=== PATIENT | male | born 1960 | race Caucasian/White ===

== ENCOUNTER → 2016-12-21 | Day surgery (SDC) | payer BC ==
[~2016-12-21] MED LIST: APA PO; FLOMAX0.4 MG PO; HYDROCODONE PO; LIPITOR20 MG PO; LOMOTIL 0.025 M1 TA1 PO; LOPRESSOR50 MG PO; MEDROL DOSEPAK4 MG PO; PERCOCET 325 MG1 TA2 PO; PRILOSEC40 MG PO; VICO75300 PO; VICODIN ES 7501 TAB PO
--- NOTE | ~2016-12-21 | O ---
[place], [place] OPERATIVE NOTE NAME: SANIYA GARLAND UNIT #: [id number] ROOM: DOCTOR: AAKASH PATEL MD BIRTHDATE: [birth year] DOS: 12/21/2016 HISTORY OF PRESENT ILLNESS: This is a 56-year-old patient who presented with chief concern about colonic screening. ALLERGIES: VIBRAMYCIN, AMOXICILLIN, CELEBREX. FAMILY HISTORY: Mother with colonic carcinoma. PAST SURGICAL HISTORY: Right shoulder repair, skin CA. PAST MEDICAL HISTORY: Hypertension, hypercholesterolemia. PROCEDURE: Today's procedure part of investigation is colonoscopy. PREMEDICATION: Versed and Diprivan. SCOPE: Olympus forward-viewing colonoscope 10L video. REPORT: After putting the patient in the left lateral position and after application of lubricant to the scope, the scope was introduced. Thereafter, under direct visualization, I advanced through the length of colon without difficulty. Base of the cecum explored, appendiceal orifice identified and ileocecal valve was defined. Scope was gradually withdrawn from ascending, transverse and descending colon. Nonspecific left-sided colitis was biopsied. The patient extubated and tolerated the procedure well. IMPRESSION: Nonspecific left-sided colitis. PLAN: High-fiber fruit diet. ACTIVITY: Ad shyanne. FOLLOWUP: As outpatient routinely with you in office, p.r.n. visit with us in [facility]. I thank you very much indeed. [place], [place] OPERATIVE NOTE NAME: SANIYA GARLAND UNIT #: [id number] ROOM: DOCTOR: AAKASH PATEL MD BIRTHDATE: [birth year] AAKASH PATEL MD CM:OPRECORD:OPERATIVE NOTE [id number] AAKASH PATEL MD 12/21/16 1721 interface
[2016-12-21 07:57] VITALS: BP 164/96
[2016-12-21 08:55] VITALS: BP 131/72
[2016-12-21 08:58] VITALS: BP 154/80
[2016-12-21 09:13] VITALS: BP 146/75
== END | disposition home or self-care (01) ==
LOC: SDC 12-16 08:00
DX: Z12.11 Encounter for screening for malignant neoplasm of colon (principal); K51.50 Left sided colitis without complications; I10 Essential (primary) hypertension; E78.00 Pure hypercholesterolemia, unspecified; K44.9 Diaphragmatic hernia without obstruction or gangrene; K21.9 Gastro-esophageal reflux disease without esophagitis; Z87.891 Personal history of nicotine dependence; Z80.0 Family history of malignant neoplasm of digestive organs; Z85.828 Personal history of other malignant neoplasm of skin; Z88.1 Allergy status to other antibiotic agents; Z88.8 Allergy status to other drugs, medicaments and biological substances; Z98.890 Other specified postprocedural states; Z88.0 Allergy status to penicillin

== ENCOUNTER → 2017-08-03 | Outpatient (CLI) | payer BC ==
[2017-08-03 10:24] LABS: HEMATOCRIT 44.3 % (42.0-52.0); HEMOGLOBIN 14.4 g/dl (14.0-18.0); MEAN CORPUSCULAR HGB 29.3 pg (27.0-31.0); MEAN CORPUSCULAR HGB CONC 32.5 g/dl (33.0-37.0); MEAN PLATELET VOLUME 9.3 fl (9.6-12.3); RED BLOOD COUNT 4.92 10*6/uL (4.50-5.90); RED CELL DISTRI WIDTH 13.2 % (0-14.5); WHITE BLOOD COUNT 7.8 10*3/uL (4.8-10.8)
[2017-08-03 10:41] LABS: ALBUMIN 3.5 gm/dl (3.1-4.5); ALKALINE PHOSPHATASE 69 U/L (45-117); BUN 17 mg/dl (7-24); CHLORIDE 105 mmol/L (98-107); CHOLESTEROL 141 mg/dL (<200); CREATININE 1.18 mg/dL (0.70-1.30); HDL CHOLESTEROL 53 mg/dl (40-60); LDL CHOLESTEROL 58 mg/dL (9-159); POTASSIUM 4.2 mmol/L (3.5-5.1); SGOT/AST 12 IU/L (3-35); SGPT/ALT 46 U/L (12-78); SODIUM 141 mmol/L (136-145); TOTAL PROTEIN 7.7 gm/dL (6.4-8.2); TRIGLYCERIDES 150 mg/dl (<150); VLDL CHOLESTEROL 30 mg/dL (6-40)
[2017-08-03 11:54] LABS: VITAMIN D, 25-HYDROXY 12.4 ng/mL (30-100)
== END | disposition home or self-care (01) ==
LOC: LAB 10:09 → EDSTATUS 10:10
DX: Z12.5 Encounter for screening for malignant neoplasm of prostate (principal); E78.00 Pure hypercholesterolemia, unspecified; I10 Essential (primary) hypertension; E55.9 Vitamin D deficiency, unspecified

== ENCOUNTER → 2018-08-30 | Outpatient (CLI) | payer BC ==
[2018-08-30 11:21] LABS: HEMATOCRIT 44.1 % (42.0-52.0); MEAN CELL VOLUME 92.1 fl (80.0-94.0); MEAN CORPUSCULAR HGB 29.2 pg (27.0-31.0); MEAN CORPUSCULAR HGB CONC 31.7 g/dl (33.0-37.0); MEAN PLATELET VOLUME 9.8 fl (9.6-12.3); RED BLOOD COUNT 4.79 10*6/uL (4.50-5.90); RED CELL DISTRI WIDTH 13.3 % (0-14.5); WHITE BLOOD COUNT 6.4 10*3/uL (4.8-10.8)
[2018-08-30 11:35] LABS: ALBUMIN 3.3 gm/dl (3.1-4.5); ALKALINE PHOSPHATASE 78 U/L (45-117); BUN 16 mg/dl (7-24); CHLORIDE 107 mmol/L (98-107); CHOLESTEROL 146 mg/dL (<200); CREATININE 1.15 mg/dL (0.70-1.30); HDL CHOLESTEROL 45 mg/dl (40-60); LDL CHOLESTEROL 76 mg/dL (9-159); POTASSIUM 3.7 mmol/L (3.5-5.1); SGOT/AST 9 IU/L (3-35); SGPT/ALT 43 U/L (12-78); SODIUM 143 mmol/L (136-145); TOTAL PROTEIN 7.5 gm/dL (6.4-8.2); TRIGLYCERIDES 126 mg/dl (<150); VLDL CHOLESTEROL 25 mg/dL (6-40)
== END | disposition home or self-care (01) ==
LOC: LAB 10:41
PROVIDERS: Physician Assistant
DX: E78.00 Pure hypercholesterolemia, unspecified (principal); I10 Essential (primary) hypertension

== ENCOUNTER → 2019-09-11 | Outpatient (CLI) | payer BC ==
[2019-09-11 12:27] LABS: HEMATOCRIT 44.4 % (42.0-52.0); HEMOGLOBIN 14.3 g/dl (14.0-18.0); MEAN CELL VOLUME 91.2 fl (80.0-94.0); MEAN CORPUSCULAR HGB 29.4 pg (27.0-31.0); MEAN CORPUSCULAR HGB CONC 32.2 g/dl (33.0-37.0); MEAN PLATELET VOLUME 9.4 fl (9.6-12.3); RED BLOOD COUNT 4.87 10*6/uL (4.50-5.90); RED CELL DISTRI WIDTH 13.2 % (0-14.5); WHITE BLOOD COUNT 6.5 10*3/uL (4.8-10.8)
[2019-09-11 12:54] LABS: ALBUMIN 3.5 gm/dl (3.1-4.5); ALKALINE PHOSPHATASE 73 U/L (45-117); BUN 18 mg/dl (7-24); CHLORIDE 109 mmol/L (98-107); CHOLESTEROL 152 mg/dL (<200); CREATININE 1.27 mg/dL (0.70-1.30); HDL CHOLESTEROL 46 mg/dl (40-60); LDL CHOLESTEROL 74 mg/dL (9-159); SGOT/AST 15 IU/L (3-35); SGPT/ALT 62 U/L (12-78); SODIUM 142 mmol/L (136-145); TOTAL PROTEIN 7.2 gm/dL (6.4-8.2); TRIGLYCERIDES 160 mg/dl (<150); VLDL CHOLESTEROL 32 mg/dL (6-40)
== END | disposition home or self-care (01) ==
LOC: LAB 11:54
PROVIDERS: Physician Assistant
DX: Z12.5 Encounter for screening for malignant neoplasm of prostate (principal); E78.00 Pure hypercholesterolemia, unspecified; I10 Essential (primary) hypertension

== ENCOUNTER → 2020-01-06 | Outpatient (CLI) | payer BC | END | disposition home or self-care (01) | LOC: COVID19 09:34 | DX: R50.9 Fever, unspecified (principal); Z20.828 Contact with and (suspected) exposure to other viral communicable diseases ==

== ENCOUNTER → 2020-06-29 | Outpatient (CLI) | payer BC | END | disposition home or self-care (01) | LOC: COVID19 11:52 | PROVIDERS: ATTEND Internal Medicine | DX: Z20.828 Contact with and (suspected) exposure to other viral communicable diseases (principal) ==

== ENCOUNTER → 2020-07-14 | Outpatient (CLI) | payer BC | END | disposition home or self-care (01) | LOC: COVID19 14:31 | PROVIDERS: ATTEND Internal Medicine | DX: Z20.822 Contact with and (suspected) exposure to COVID-19 (principal) ==

== ENCOUNTER → 2020-08-05 | Outpatient (CLI) | payer BC | END | disposition home or self-care (01) | LOC: COVID19 14:29 | PROVIDERS: ATTEND Internal Medicine | DX: Z20.822 Contact with and (suspected) exposure to COVID-19 (principal) ==

== ENCOUNTER → 2020-09-28 | Outpatient (CLI) | payer BC ==
[2020-09-28 10:24] LABS: HEMATOCRIT 43.3 % (42.0-52.0); MEAN CELL VOLUME 89.1 fl (80.0-94.0); MEAN CORPUSCULAR HGB 29.2 pg (27.0-31.0); MEAN CORPUSCULAR HGB CONC 32.8 g/dl (33.0-37.0); MEAN PLATELET VOLUME 9.7 fl (9.6-12.3); RED BLOOD COUNT 4.86 10*6/uL (4.50-5.90); RED CELL DISTRI WIDTH 12.8 % (0-14.5); WHITE BLOOD COUNT 6.5 10*3/uL (4.8-10.8)
[2020-09-28 10:53] LABS: ALBUMIN 3.4 gm/dl (3.1-4.5); BUN 19 mg/dl (7-24); CHLORIDE 107 mmol/L (98-107); HDL CHOLESTEROL 47 mg/dl (40-60); SODIUM 140 mmol/L (136-145)
[2020-09-28 11:06] LABS: ALKALINE PHOSPHATASE 73 U/L (45-117); CHOLESTEROL 144 mg/dL (<200); CREATININE 1.14 mg/dL (0.70-1.30); LDL CHOLESTEROL 76 mg/dL (9-159); SGOT/AST 13 IU/L (3-35); SGPT/ALT 51 U/L (12-78); TOTAL PROTEIN 7.7 gm/dL (6.4-8.2); TRIGLYCERIDES 105 mg/dl (<150); VLDL CHOLESTEROL 21 mg/dL (6-40)
== END | disposition home or self-care (01) ==
LOC: LAB 09:42
PROVIDERS: ATTEND Physician Assistant
DX: Z12.5 Encounter for screening for malignant neoplasm of prostate (principal); I10 Essential (primary) hypertension; E78.00 Pure hypercholesterolemia, unspecified

== ENCOUNTER → 2021-03-08 | Outpatient (CLI) | payer BC | END | disposition home or self-care (01) | LOC: LAB 16:06 | PROVIDERS: ATTEND Physician Assistant | DX: M25.561 Pain in right knee (principal); M25.562 Pain in left knee ==

== ENCOUNTER → 2021-03-17 | Outpatient (CLI) | payer BC ==
[2021-03-18 05:06] LABS: RHEUMATOID ARTHRITIS FACTOR 10.3 IU/mL (0.0-13.9)
== END | disposition home or self-care (01) ==
LOC: LAB 09:20 → US 10:00
PROVIDERS: ATTEND Physician Assistant
DX: M17.0 Bilateral primary osteoarthritis of knee (principal); M25.461 Effusion, right knee

== ENCOUNTER → 2021-09-16 | Outpatient (CLI) | payer BC ==
[2021-09-16 08:44] LABS: BASO % 0.4 % (0.0-1.0); BILIRUBIN Negative (Negative); BLOOD Negative (Negative); CLARITY Clear (Clear); COLOR Yellow (Yellow); EOS # 0.2 10*3/uL (0.0-0.4); EOS % 2.8 % (1.0-4.0); GLUCOSE Negative (Negative); HEMATOCRIT 42.8 % (42.0-52.0); KETONE Negative (Negative); LEUKO ESTERASE Negative (Negative); LYMPH # 2.7 10*3/uL (1.3-4.4); LYMPH % 38.4 % (27.0-41.0); MEAN CORPUSCULAR HGB CONC 32.2 g/dl (33.0-37.0); MEAN PLATELET VOLUME 9.2 fl (9.6-12.3); MONO # 0.6 10*3/uL (0.1-1.0); MONO % 8.8 % (3.0-9.0); NEUT # 3.5 10*3/uL (2.3-7.9); NEUT % 49.3 % (47.0-73.0); NITRITE Negative (Negative); PLATELET COUNT AUTOMATED 194 10*3/uL (130-400); RED BLOOD COUNT 4.92 10*6/uL (4.50-5.90); RED CELL DISTRI WIDTH 13.9 % (0-14.5); UROBILINOGEN 0.2 E.U./dl (0.0-1.0); WHITE BLOOD COUNT 7.1 10*3/uL (4.8-10.8)
[2021-09-16 08:55] LABS: ACT PARTIAL THROMBO TIME 28.5 SECONDS (20.0-32.1)
[2021-09-16 08:58] LABS: ALKALINE PHOSPHATASE 78 U/L (45-117); BUN 17 mg/dl (7-24); CHLORIDE 105 mmol/L (98-107); CREATININE 1.24 mg/dL (0.70-1.30); MUCOUS TRACE; POTASSIUM 4.2 mmol/L (3.5-5.1); RBC 0-2 rbc/hpf (0-2); SGOT/AST 13 IU/L (3-35); SGPT/ALT 48 U/L (12-78); SODIUM 140 mmol/L (136-145); TOTAL PROTEIN 7.7 gm/dL (6.4-8.2); WBC 0-2 wbc/hpf (0-5)
== END | disposition home or self-care (01) ==
LOC: LAB 08:08
PROVIDERS: ATTEND Orthopaedic Surgery
DX: Z01.818 Encounter for other preprocedural examination (principal); S83.242D Other tear of medial meniscus, current injury, left knee, subsequent encounter; M17.12 Unilateral primary osteoarthritis, left knee; X58.XXXD Exposure to other specified factors, subsequent encounter

== ENCOUNTER → 2021-12-08 | Outpatient (CLI) | payer BC | END | disposition home or self-care (01) | LOC: LAB 07:49 | PROVIDERS: ATTEND Physician Assistant | DX: Z01.812 Encounter for preprocedural laboratory examination (principal); Z12.5 Encounter for screening for malignant neoplasm of prostate; I10 Essential (primary) hypertension; M25.562 Pain in left knee ==

== ENCOUNTER → 2022-10-06 | Outpatient (CLI) | payer BC ==
[2022-10-06 10:34] LABS: HEMATOCRIT 44.2 % (42.0-52.0); MEAN CORPUSCULAR HGB 29.3 pg (27.0-31.0); MEAN CORPUSCULAR HGB CONC 33.3 g/dl (33.0-37.0); MEAN PLATELET VOLUME 9.5 fl (9.6-12.3); RED BLOOD COUNT 5.02 10*6/uL (4.50-5.90); RED CELL DISTRI WIDTH 13.3 % (0-14.5); WHITE BLOOD COUNT 7.3 10*3/uL (4.8-10.8)
[2022-10-06 11:04] LABS: ALKALINE PHOSPHATASE 75 U/L (46-116); BUN 12 mg/dl (9-23); CHLORIDE 106 mmol/L (98-107); CHOLESTEROL 134 mg/dL (<200); LDL CHOLESTEROL 68 mg/dL (9-159); SGPT/ALT 33 U/L (10-49); TOTAL PROTEIN 7.2 gm/dL (6.0-8.0); TRIGLYCERIDES 115 mg/dl (<150)
== END | disposition home or self-care (01) ==
LOC: US 00:52 → LAB 00:52 → US 09:30
PROVIDERS: ATTEND Physician Assistant
DX: K76.0 Fatty (change of) liver, not elsewhere classified (principal); I10 Essential (primary) hypertension; E78.00 Pure hypercholesterolemia, unspecified; Z12.5 Encounter for screening for malignant neoplasm of prostate; R73.9 Hyperglycemia, unspecified

== ENCOUNTER → 2022-10-18 | Outpatient (CLI) | payer BC | END | disposition home or self-care (01) | LOC: NM 01:18 | PROVIDERS: ATTEND Physician Assistant | DX: K80.20 Calculus of gallbladder without cholecystitis without obstruction (principal); R11.0 Nausea ==

== ENCOUNTER → 2022-11-28 | Day surgery (SDC) | payer BC ==
[2022-11-28] VITALS (8 sets, daily range): BP systolic 152–179; BP diastolic 68–89
[~2022-11-28] VITALS: Ht 187.9 cm; Wt 136.1 kg
[~2022-11-28] MED LIST changes: +COLACE100 MG PO; +COZAAR25 M1 PO; +HYDROCODONE-AC1 EAC1 PO; +ONDANSETRON HYDR4 M1 PO
== END | disposition home or self-care (01) ==
LOC: SDC 11-25 11:00
PROVIDERS: ATTEND Surgery
DX: K80.10 Calculus of gallbladder with chronic cholecystitis without obstruction (principal); I10 Essential (primary) hypertension; K21.9 Gastro-esophageal reflux disease without esophagitis; E78.00 Pure hypercholesterolemia, unspecified; Z88.1 Allergy status to other antibiotic agents; Z98.890 Other specified postprocedural states; Z79.899 Other long term (current) drug therapy

== ENCOUNTER → 2022-12-07 | Outpatient (CLI) | payer BC | END | disposition home or self-care (01) | LOC: RAD 08:48 | PROVIDERS: ATTEND Surgery | DX: M25.531 Pain in right wrist (principal) ==

== ENCOUNTER → 2023-10-12 | Outpatient (CLI) | payer BC ==
[2023-10-12 08:58] LABS: MEAN CORPUSCULAR HGB CONC 32.6 g/dl (33.0-37.0); MEAN PLATELET VOLUME 9.5 fl (9.6-12.3); RED BLOOD COUNT 5.17 10*6/uL (4.50-5.90); RED CELL DISTRI WIDTH 13.5 % (0-14.5); WHITE BLOOD COUNT 6.9 10*3/uL (4.8-10.8)
[2023-10-12 10:14] LABS: ALKALINE PHOSPHATASE 91 U/L (46-116); BUN 15 mg/dl (9-23); CHLORIDE 106 mmol/L (98-107); CHOLESTEROL 153 mg/dL (<200); LDL CHOLESTEROL 80 mg/dL (9-159); SGPT/ALT 46 U/L (5-49); TOTAL PROTEIN 6.9 gm/dL (6.0-8.0); TRIGLYCERIDES 161 mg/dl (<150)
== END | disposition home or self-care (01) ==
LOC: LAB 08:33
PROVIDERS: ATTEND Physician Assistant
DX: Z12.5 Encounter for screening for malignant neoplasm of prostate (principal); I10 Essential (primary) hypertension; R73.9 Hyperglycemia, unspecified

== ENCOUNTER → 2024-09-30 | Outpatient (CLI) | payer BC ==
[2024-09-30 10:10] LABS: HEMATOCRIT 43.9 % (42.0-52.0); MEAN CELL VOLUME 89.4 fl (80.0-94.0); MEAN CORPUSCULAR HGB 29.3 pg (27.0-31.0); MEAN CORPUSCULAR HGB CONC 32.8 g/dl (33.0-37.0); MEAN PLATELET VOLUME 9.2 fl (9.6-12.3); RED BLOOD COUNT 4.91 10*6/uL (4.50-5.90); RED CELL DISTRI WIDTH 13.4 % (0-14.5)
[2024-09-30 10:36] LABS: ALKALINE PHOSPHATASE 71 U/L (46-116); BUN 15 mg/dl (9-23); CHLORIDE 103 mmol/L (98-107); CHOLESTEROL 163 mg/dL (<200); LDL CHOLESTEROL 94 mg/dL (9-159); POTASSIUM 4.3 mmol/L (3.4-5.1); SGPT/ALT 61 U/L (5-49); TOTAL PROTEIN 7.5 gm/dL (6.0-8.0); TRIGLYCERIDES 92 mg/dl (<150)
== END | disposition home or self-care (01) ==
LOC: LAB 09:38
PROVIDERS: ATTEND Physician Assistant
DX: Z12.5 Encounter for screening for malignant neoplasm of prostate (principal); L40.9 Psoriasis, unspecified; J40 Bronchitis, not specified as acute or chronic; J32.9 Chronic sinusitis, unspecified; Z00.00 Encounter for general adult medical examination without abnormal findings

== ENCOUNTER → 2024-10-17 | Outpatient (CLI) | payer BC ==
[2024-10-17 10:22] LABS: TOTAL PROTEIN 7.2 gm/dL (6.0-8.0)
== END | disposition home or self-care (01) ==
LOC: LAB 09:17
PROVIDERS: ATTEND Physician Assistant
DX: I10 Essential (primary) hypertension (principal); R74.8 Abnormal levels of other serum enzymes

== ENCOUNTER → 2024-11-06 | Outpatient (CLI) | payer BC ==
[2024-11-07 05:06] LABS: HBsAG SCREEN Negative (Negative); HCV Ab Non Reactive (Non Reactive); HEP B CORE Ab, IgM Negative (Negative)
== END | disposition home or self-care (01) ==
LOC: LAB 09:15
PROVIDERS: ATTEND Physician Assistant
DX: R74.8 Abnormal levels of other serum enzymes (principal)

== ENCOUNTER → 2024-12-06 | Outpatient (CLI) | payer BC | END | disposition home or self-care (01) | LOC: US 07:52 | PROVIDERS: ATTEND Physician Assistant | DX: K76.0 Fatty (change of) liver, not elsewhere classified (principal); R16.0 Hepatomegaly, not elsewhere classified; R74.8 Abnormal levels of other serum enzymes; Z90.49 Acquired absence of other specified parts of digestive tract ==